=== PATIENT | male | born 1995 | race Caucasian/White ===

== ENCOUNTER 2020-10-15 15:25 | Emergency (ER) | payer OTHER ==
[~2020-10-15] VITALS: Ht 167.6 cm; Wt 75.0 kg
[2020-10-15 15:40] VITALS: TEMP 98.4
[2020-10-15] MEDS ORDERED: CEPHALEXIN500 M1 PO (15:52)
[2020-10-15 16:10] VITALS: BP 129/80; PULSE 78
== END 2020-10-15 16:12 | disposition home or self-care (01) ==
LOC: COL.ER 15:25
DX: S61.212A Laceration without foreign body of right middle finger without damage to nail, initial encounter (principal); Z23 Encounter for immunization; W26.9XXA Contact with unspecified sharp object(s), initial encounter